=== PATIENT | male | born 1990 | race Caucasian/White ===

== ENCOUNTER 2017-01-13 13:45 | Emergency (ER) | payer OTHER ==
[2017-01-13 15:04] VITALS: BP 118/77
[2017-01-13] MEDS ORDERED: Ketorolac INJ* 60 MG/2 ML VIAL IM ONE (16:32)
--- NOTE | 2017-01-13 16:46 | ED ---
Throat Pain/Nasal Congestion - HPI Summary HPI Summary: 26 male presents with complaints of dental/jaw pain that radiates into his ear and causes a headache that has been on going for several years. He is worried he may have an ear infection. He has been treated multiple times for dental infection that causes similar radiation of pain. He does not have a dentist and has not at complete care for this issue. He also complains of a productive cough. Both the cough and increasing dental/jaw pain began approximately 2 days ago. He states he has been coughing so hard he blew a blood vessel in his right eye. He states the cough is productive brown to yellow to clear in color. Also admits to nasal congestion. Denies fever/chills, abdominal pain, chest pain and difficulty breathing. Denies neurological deficits and excessive tearing of eyes , visual changes. He has not taken any medications besides 400mg of ibuprofen yesterday which did give him some relief. - History of Current Complaint Chief Complaint: EDUpperRespComplaint Hx Obtained From: Patient Onset/Duration: Sudden Onset, Lasting Days, Worse Since Severity: Mild Associated Signs And Symptoms: Positive: Negative Cough: Productive - Allergies/Home Medications Allergies/Adverse Reactions: Allergies Allergy/AdvReac Type Severity Reaction Status Date / Time Amoxicillin [From Augmentin] Allergy Unknown Unknown Verified 11/12/15 12:46 Reaction Details Ceftriaxone [From Rocephin] Allergy Unknown Unknown Verified 11/12/15 12:46 Reaction Details Clavulanic Acid Allergy Unknown Unknown Verified 11/12/15 12:46 [From Augmentin] Reaction Details PMH/Surg Hx/FS Hx/Imm Hx Endocrine/Hematology History: Denies: Hx Anemia Cardiovascular History: Denies: Hx Hypertension Respiratory History: Denies: Hx Asthma EENT History: Reports: Other - dental infections - Immunization History Immunizations Up to Date: Yes Infectious Disease History: No Infectious Disease History: Denies: Traveled Outside the [place] in Last 30 Days - Family History Known Family History: Positive: Cardiac Disease Family History: NON CONTRIBUTORY - Social History Alcohol Use: None Substance Use Type: Reports: None Smoking Status (MU): Heavy Every Day Tobacco Smoker Amount Used/How Often: 1/2 ppd Review of Systems Constitutional: Negative Eyes: Negative Positive: Dental Pain, Ear Ache Cardiovascular: Negative Positive: Cough Gastrointestinal: Negative Genitourinary: Negative Musculoskeletal: Negative Skin: Negative Positive: Headache Psychological: Normal All Other Systems Reviewed And Are Negative: Yes Physical Exam Triage Information Reviewed: Yes Vital Signs On Initial Exam: Initial Vitals Temp Pulse Resp BP Pulse Ox 98.2 F 60 18 123/85 100 01/13/17 14:00 01/13/17 14:00 01/13/17 14:00 01/13/17 14:00 01/13/17 14:00 Vital Signs Reviewed: Yes Appearance: Positive: Well-Appearing, No Pain Distress, Well-Nourished Skin: Positive: Warm, Skin Color Reflects Adequate Perfusion, Dry Head/Face: Positive: Normal Head/Face Inspection. Negative: Temporal Artery Tenderness, TMJ Tenderness Eyes: Positive: Normal, Conjunctiva Clear, Other: - subconjunctival hemmorhage, healing noted in right lateral sclera. ENT: Positive: Hearing grossly normal, Pharyngeal erythema, Nasal congestion, TMs normal, Dental tenderness - right bottom back molar. Negative: TM bulging, TM dull, TM red, Tonsillar swelling, Tonsillar exudate Dental: Positive: Gross Decay/Caries @ - edema and erythema of lower left back molar at area of complication when compared to right side., Dental Fracture @, Cervical Lymphadenopathy. Negative: Percussion Tenderness @, Bleeding, Foreign body Neck: Positive: Supple, Nontender Respiratory/Lung Sounds: Positive: Clear to Auscultation, Breath Sounds Present. Negative: Rales, Rhonchi, Stridor, Tracheal Deviation, Wheezes Cardiovascular: Positive: Normal, RRR, Pulses are Symmetrical in both Upper and Lower Extremities Abdomen Description: Positive: Nontender, No Organomegaly, Soft Bowel Sounds: Positive: Present Musculoskeletal: Positive: Normal, Strength/ROM Intact Neurological: Positive: Normal, Sensory/Motor Intact, Alert, Oriented to Person Place, Time Diagnostics - Vital Signs Vital Signs Temp Pulse Resp BP Pulse Ox 01/13/17 15:03 97.7 F 55 16 118/77 100 01/13/17 14:00 98.2 F 60 18 123/85 100 - Laboratory Lab Statement: Any lab studies that have been ordered have been reviewed, and results considered in the medical decision making process. Re-Evaluation - Re-Evaluation First Eval Re-Evaluation Time: 17:00 Change: Improved - patient was feeling much better after toradol EENT Course/Dx - Course Course Of Treatment: given toradol for pain while in ED. prescribed antibiotics and pain medication to take for possible dental infection. told to follow up with dentist and this is very important to cure this issue from happening again in the future. also advised to take cough suppresants at night time and mucinex daily to help with URI. follow up. aware of worening signs and symptoms. due to PE findings no further testing of influenza, chest x-ray etc needed at this time. - Differential Diagnoses Differential Diagnoses: Dental Abscess, Dental Caries, Otitis Media, Periodontic Disease, Pharyngitis, URI/Bronchitis - Diagnoses Provider Diagnoses: Pain, dental, Chronic dental infection, URI, acute Discharge - Discharge Plan Condition: Stable Disposition: HOME Prescriptions: Azithromycin TAB* [Zithromax TAB (Z-TWAN) 250 mg #6 tabs] 250 mg PO DAILY #6 tab Ibuprofen TAB* [Motrin TAB* 800 MG] 800 mg PO Q6H #25 tab Patient Education Materials: Dental Abscess (ED), Upper Respiratory Infection ( ED) Referrals: [facility] [place] [facility] [Outside] No Primary Care Phys,NOPCP [Primary Care Provider] - Additional Instructions: Take prescribed antibiotics to help with infection of tooth. Take prescribed ibuprofen for pain every 4-6 hours as needed. Take cough suppressants and mucinex to help with your URI. If you have worsening symptoms such as increasing pain, swelling, discharge, difficulty breathing, cough, or high fevers please return. Follow up with a primary care provider is strongly recommended. It is extremely important for you to be seen by a dentist to have this problem solved.
== END 2017-01-13 17:17 | disposition home or self-care (01) ==
LOC: ED 13:45
DX: K08.89 Other specified disorders of teeth and supporting structures (principal); J06.9 Acute upper respiratory infection, unspecified; H92.09 Otalgia, unspecified ear; R51 Headache; F17.210 Nicotine dependence, cigarettes, uncomplicated
CPT/HCPCS: 99282; J1885

== ENCOUNTER 2017-02-19 20:37 | Emergency (ER) | payer OTHER ==
[2017-02-19] MEDS ORDERED: Clindamycin CAP* 150 MG PO ONE ×2 (22:34→22:35)
--- NOTE | 2017-02-19 22:47 | ED ---
Issa Franklin Anna, scribed for Dariel Lyle MD on 02/19/17 at 2237 . Throat Pain/Nasal Congestion - HPI Summary HPI Summary: Patient is a 26 y/o male coming to [facility] presenting with the gradual onset of constant, worsening dental pain that began four days ago. Denies fever. He has been taking ibuprofen for the pain, but this has not alleviated the symptoms. Patient medications have been reviewed this visit. 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 Onset/Duration: Gradual Onset, Lasting Days, Still Present Severity: Moderate Cough: None - Allergies/Home Medications Allergies/Adverse Reactions: Allergies Allergy/AdvReac Type Severity Reaction Status Date / Time Amoxicillin [From Augmentin] Allergy Unknown Unknown Verified 02/19/17 20:49 Reaction Details Ceftriaxone [From Rocephin] Allergy Unknown Unknown Verified 02/19/17 20:49 Reaction Details Clavulanic Acid Allergy Unknown Unknown Verified 02/19/17 20:49 [From Augmentin] Reaction Details PMH/Surg Hx/FS Hx/Imm Hx Endocrine/Hematology History: Denies: Hx Anemia Cardiovascular History: Denies: Hx Hypertension Respiratory History: Denies: Hx Asthma Infectious Disease History: No Infectious Disease History: Denies: Traveled Outside the [place] in Last 30 Days - Family History Known Family History: Positive: Cardiac Disease - Social History Lives: With Family Alcohol Use: None Substance Use Type: Reports: None Smoking Status (MU): Heavy Every Day Tobacco Smoker Amount Used/How Often: 1/2 ppd Review of Systems Negative: Fever Positive: Dental Pain All Other Systems Reviewed And Are Negative: Yes Physical Exam Triage Information Reviewed: Yes Vital Signs On Initial Exam: Initial Vitals Temp Pulse Resp BP Pulse Ox 99.1 F 106 20 136/69 100 02/19/17 20:46 02/19/17 20:46 02/19/17 20:46 02/19/17 20:46 02/19/17 20:46 Vital Signs Reviewed: Yes Appearance: Positive: Well-Appearing, No Pain Distress Skin: Positive: Warm, Skin Color Reflects Adequate Perfusion, Dry Head/Face: Positive: Normal Head/Face Inspection Eyes: Positive: EOMI, ODETTE ENT: Positive: Normal ENT inspection Dental: Positive: Other - Right lower molar with rashad and some gingival swelling Neck: Positive: Supple, Nontender Respiratory/Lung Sounds: Positive: Clear to Auscultation, Breath Sounds Present Cardiovascular: Positive: RRR Abdomen Description: Positive: Nontender, Soft Bowel Sounds: Positive: Present Musculoskeletal: Positive: Normal, Strength/ROM Intact Neurological: Positive: Normal, Sensory/Motor Intact, Alert, Oriented to Person Place, Time Psychiatric: Positive: Affect/Mood Appropriate Diagnostics - Vital Signs Vital Signs Temp Pulse Resp BP Pulse Ox 02/19/17 21:25 99.1 F 106 18 136/69 100 02/19/17 20:46 99.1 F 106 20 136/69 100 - Laboratory Lab Statement: Any lab studies that have been ordered have been reviewed, and results considered in the medical decision making process. EENT Course/Dx - Course Course Of Treatment: NO CRITICAL CARE TIME Assessment/Plan: DISCHARGE HOME STABLE - Diagnoses Provider Diagnoses: Dental abscess Discharge - Discharge Plan Condition: Stable Disposition: HOME Prescriptions: Clindamycin Cap(NF) [Cleocin 300 mg Cap(NF)] 300 mg PO Q6H #37 cap Patient Education Materials: Dental Abscess (ED) Referrals: Robbie Ellison MD [Primary Care Provider] - Additional Instructions: FOLLOW UP WITH YOUR DENTIST. RETURN TO THE EMERGENCY DEPARTMENT FOR ANY WORSENING OF YOUR CONDITION OR QUESTIONS OR CONCERNS. The documentation as recorded by the Issa su Anna accurately reflects the service I personally performed and the decisions made by me, Dariel Lyle MD.
[2017-02-19 22:57] VITALS: BP 122/68
== END 2017-02-19 22:54 | disposition home or self-care (01) ==
LOC: ED 20:37
DX: K04.7 Periapical abscess without sinus (principal)
CPT/HCPCS: 99282; A9270-GY

== ENCOUNTER → 2017-03-03 00:01 | Emergency (ER) | payer OTHER ==
[~2017-03-03 00:01] MED LIST: Hydrocortisone SUPP* 25 MG SUPP (2.5%) PR ONE
[2017-03-03 00:07] VITALS: BP 136/86
--- NOTE | 2017-03-03 00:36 | ED ---
Duane Franklin Salem, scribed for Wai Cabrera MD on 03/03/17 at 0033 . GI/ HPI - HPI Summary HPI Summary: Patient is a 26 y/o male who presents to the ED with rectal pain since 3 days ago. He states that pain was aggravated by coughing initially and worsened today as he was doing some heavy lifting. He denies any hx of similar sx. Pt did not take any medication [employer]. He states that he noticed a lump in his rectal area a few hours ago and decided to come in. - History of Current Complaint Chief Complaint: EDRectalPain Time Seen by Provider: 03/03/17 00:28 Stated Complaint: RECTAL PAIN Hx Obtained From: Patient Onset/Duration: Started Days Ago, Atraumatic, Still Present Timing: Constant Severity: Moderate Current Severity: Moderate Pain Intensity: 7 Location of Pain: Rectal Associated Signs and Symptoms: Positive: Negative Aggravating Factor(s): Nothing Alleviating Factor(s): Nothing - Allergy/Home Medications Allergies/Adverse Reactions: Allergies Allergy/AdvReac Type Severity Reaction Status Date / Time Amoxicillin [From Augmentin] Allergy Unknown Unknown Verified 02/19/17 20:49 Reaction Details Ceftriaxone [From Rocephin] Allergy Unknown Unknown Verified 02/19/17 20:49 Reaction Details Clavulanic Acid Allergy Unknown Unknown Verified 02/19/17 20:49 [From Augmentin] Reaction Details PMH/Surg Hx/FS Hx/Imm Hx Endocrine/Hematology History: Denies: Hx Anemia Cardiovascular History: Denies: Hx Hypertension Respiratory History: Denies: Hx Asthma Infectious Disease History: Denies: Traveled Outside the [place] in Last 30 Days - Family History Known Family History: Positive: Cardiac Disease - Social History Alcohol Use: None Hx Substance Use: No Substance Use Type: Reports: None Hx Tobacco Use: Yes Smoking Status (MU): Heavy Every Day Tobacco Smoker Amount Used/How Often: 1/2 ppd Review of Systems Negative: Fever Positive: other - Rectal pain. All Other Systems Reviewed And Are Negative: Yes Physical Exam Triage Information Reviewed: Yes Vital Signs On Initial Exam: Initial Vitals Temp Pulse Resp BP Pulse Ox 98.5 F 108 18 136/86 99 03/03/17 00:03 03/03/17 00:03 03/03/17 00:03 03/03/17 00:03 03/03/17 00:03 Vital Signs Reviewed: Yes Appearance: Positive: Well-Appearing, No Pain Distress Skin: Positive: Warm Head/Face: Positive: Normal Head/Face Inspection Eyes: Positive: ODETTE ENT: Positive: Hearing grossly normal Neck: Positive: Supple Respiratory/Lung Sounds: Positive: Clear to Auscultation, Breath Sounds Present Cardiovascular: Positive: RRR Abdomen Description: Positive: Nontender, Soft, Other: - non thrombosed ext hemmorhoid Musculoskeletal: Positive: Strength/ROM Intact Neurological: Positive: Alert, Oriented to Person Place, Time Diagnostics - Vital Signs Vital Signs Temp Pulse Resp BP Pulse Ox 03/03/17 00:03 98.5 F 108 18 136/86 99 - Laboratory Lab Statement: Any lab studies that have been ordered have been reviewed, and results considered in the medical decision making process. GIGU Course/Dx - Diagnoses Provider Diagnoses: Hemorrhoid Discharge - Discharge Plan Condition: Stable Disposition: HOME Prescriptions: Docusate CAP* [Colace Cap*] 100 mg PO BID #20 cap Hydrocortisone SUPP* [Anusol HC Supp*] 25 mg [place] Q6H #10 supp Patient Education Materials: Hemorrhoids (ED) Referrals: Robbie Ellison MD [Primary Care Provider] - Additional Instructions: Follow up with PCP. The documentation as recorded by the Duane su Salem accurately reflects the service I personally performed and the decisions made by Rick land David, MD.
== END | disposition home or self-care (01) ==
LOC: ED 00:01
DX: K64.9 Unspecified hemorrhoids (principal); K62.89 Other specified diseases of anus and rectum; F17.210 Nicotine dependence, cigarettes, uncomplicated
CPT/HCPCS: 99282; A9270-GY